=== PATIENT | male | born 1955 | race Caucasian/White ===

== ENCOUNTER 2016-08-24 19:27 | Emergency (ER) | payer SELFPAY ==
[~2016-08-24] VITALS: Ht 175.3 cm; Wt 131.5 kg
[~2016-08-24 19:27] MED LIST: DILT90 PO; PRAV20TA4 PO
[2016-08-24] MEDS ORDERED: ALBUTEROL SULFATE 5 MG/ML 20 ML NEB SOLN [BULK] NEB ONE (19:45)
[2016-08-24] MEDS ORDERED: IPRATROPIUM BROMIDE 0.5 MG/2.5 ML NEB SOLUTION NEB ONE (19:45)
[2016-08-24] MEDS ORDERED: ACETAMINOPHEN 500 MG TABLET PO ONE (19:45)
[2016-08-24] MEDS ORDERED: 0.9% SODIUM CHLORIDE 5 ML NEB SOLUTION NEB ONE (19:57)
[2016-08-24 20:32] LABS: ANION GAP 10 mmol/L (8-16); CARBON DIOXIDE 26 mmol/L (22-29); CHLORIDE 104 mmol/L (98-107); CREATININE 1.18 mg/dL (0.60-1.30); GLOMERULAR FILTR. RATE CALC > 60 mL/min (>60); POTASSIUM 4.2 mmol/L (3.5-5.1); SODIUM SERUM 140 mmol/L (136-145); UREA NITROGEN, BLOOD 21 mg/dL (7-18)
[2016-08-24 20:33] LABS: BASOPHILS % (AUTO) 0.4 % (0.0-2.0); EOSINOPHILS % (AUTO) 0.8 % (1.0-6.0); HEMATOCRIT 37.8 % (41-53); HEMOGLOBIN 12.8 g/dL (13.5-17.5); LYMPHOCYTES # (AUTO) 2.2 K/uL (1.0-4.8); LYMPHOCYTES % (AUTO) 22.2 % (22.0-44.0); MEAN CORPUSCULAR HEMOGLOBIN 30.1 pg (26.0-34.0); MEAN CORPUSCULAR HGB CONC 33.9 G/dL (31.0-37.0); MEAN CORPUSCULAR VOLUME 89 fL (80-100); MONOCYTES # (AUTO) 0.6 K/uL (0.1-1.0); MONOCYTES % (AUTO) 6.2 % (2.0-9.0); NEUTROPHILS # (AUTO) 7.1 K/uL (1.8-7.7); NEUTROPHILS % (AUTO) 70.4 % (40.0-70.0); PLATELET COUNT (AUTO) 278 K/uL (150-450); RED BLOOD CELL COUNT(AUTO) 4.27 MIL/uL (4.50-5.90); RED CELL DISTRIBUTION WIDTH 13.4 % (11.5-14.5); WHITE BLOOD COUNT (AUTO) 10.1 K/uL (4.5-11.0)
[2016-08-24 20:38] LABS: ALANINE AMINOTRANSFERASE 57 U/L (12-78); ALBUMIN 3.8 g/dL (3.4-5.0); ASPARTATE AMINOTRANSFERASE 51 U/L (15-37); BILIRUBIN,TOTAL 0.5 mg/dL (0.1-1.0); TOTAL PROTEIN, SERUM 7.8 g/dL (6.4-8.2)
[2016-08-24 20:43] VITALS: BP 133/69
== END 2016-08-24 21:14 | disposition home or self-care (01) ==
LOC: EMS 19:33
DX: J40 Bronchitis, not specified as acute or chronic (principal); I10 Essential (primary) hypertension; E78.00 Pure hypercholesterolemia, unspecified
CPT/HCPCS: 36415; 71010; 80053; 85025; 94644; 99285; J7611

== ENCOUNTER 2019-01-27 08:12 | Emergency (ER) | payer SELFPAY ==
[~2019-01-27] VITALS: Ht 177.8 cm; Wt 147.7 kg
[2019-01-27 08:15] VITALS: BP 147/92
== END 2019-01-27 08:52 | disposition home or self-care (01) ==
LOC: EMS 08:16
DX: S61.412D Laceration without foreign body of left hand, subsequent encounter (principal); E78.00 Pure hypercholesterolemia, unspecified; I10 Essential (primary) hypertension; Z79.899 Other long term (current) drug therapy; Z88.8 Allergy status to other drugs, medicaments and biological substances; X58.XXXD Exposure to other specified factors, subsequent encounter

== ENCOUNTER 2022-04-16 15:46 | Emergency (ER) | payer MEDICARE ==
[~2022-04-16] VITALS: Ht 177.8 cm; Wt 144.6 kg
[~2022-04-16 15:46] MED LIST changes: +HIGH CHOLESTEROL MED PO; +HTN MED PO; +NAPR-1025 PO
[2022-04-16 16:06] LABS: GLUCOMETER DEV NAME(LOC) ERT.5; GLUCOSE,POINT OF CARE 167 MG/DL (70-110)
[2022-04-16 16:08] LABS: COVID AG,FIA SOURCE NASAL SWAB
[2022-04-16 16:30] LABS: INFLUENZA TYPE A NEGATIVE FOR TYPE A (NEGATIVE); INFLUENZA TYPE B NEGATIVE FOR TYPE B (NEGATIVE)
[2022-04-16] MEDS ORDERED: CefTRIAXone SODIUM 1 GM/VIAL IM ONE (19:00)
[2022-04-16] MEDS ORDERED: LIDOCAINE/PF 1% 2 ML VIAL IM ONE (19:00)
[2022-04-16 19:45] VITALS: BP 150/72
== END 2022-04-16 19:46 | disposition home or self-care (01) ==
LOC: EMS 15:47
DX: J40 Bronchitis, not specified as acute or chronic (principal); E11.9 Type 2 diabetes mellitus without complications; E78.00 Pure hypercholesterolemia, unspecified; I10 Essential (primary) hypertension; Z87.891 Personal history of nicotine dependence; Z98.890 Other specified postprocedural states; Z88.8 Allergy status to other drugs, medicaments and biological substances; Z20.822 Contact with and (suspected) exposure to COVID-19
CPT/HCPCS: 99285; 71045; 87426; 82962; 87804; 93005; 96372; J0696; J3490

== ENCOUNTER 2023-03-01 19:31 | Emergency (ER) | payer MEDICARE ==
[~2023-03-01] VITALS: Ht 175.3 cm; Wt 143.0 kg
[2023-03-01 19:56] LABS: GLUCOMETER DEV NAME(LOC) ERT.5; GLUCOSE,POINT OF CARE 109 MG/DL (70-110)
[2023-03-01 21:18] LABS: TROPONIN I-HIGH SENSITIVITY 7 ng/L (<76)
[2023-03-01 21:48] VITALS: BP 129/81; PULSE 62; RESP 20; TEMP 98.1
== END 2023-03-01 21:50 | disposition home or self-care (01) ==
LOC: EMS 19:32
DX: I10 Essential (primary) hypertension (principal); R51.9 Headache, unspecified; M79.602 Pain in left arm; E11.9 Type 2 diabetes mellitus without complications; E78.00 Pure hypercholesterolemia, unspecified; Z98.890 Other specified postprocedural states; Z88.8 Allergy status to other drugs, medicaments and biological substances
CPT/HCPCS: 82948; 82962; 84484; 93005; 99284